=== PATIENT | male | born 1975 | race Two or more races ===

== ENCOUNTER 2020-03-09 19:33 | Emergency (ER) | payer MEDICAID, OTHER ==
[~2020-03-09] VITALS: Ht 177.8 cm; Wt 92.0 kg
[2020-03-09 19:38] VITALS: BP 119/78
--- NOTE | 2020-03-09 20:05 | NUR ---
THIS IS A 44 YO MALE BIB [facility] FROM [facility] FOR POTENTIAL SYNCOPAL EVENT, PER DAIJASA "IT SOUNDED LIKE AN ORTHOSTATIC THING, HE SAID HE HASN'T BEEN EATING OR DRINKING FLUIDS MUCH NORMAL". PATIENT SUSTAINED HEAD LAC WITH FALL, RECALLS EVENT OF FALL. A&OX4 WITH [facility] 15 ON SCENE AND IN ED. BLEEDING CONTROLLED WITH GAUZE. PATIENT UNDER SURVEILLANCE OF SHERRIFFS IN ROOM. ERP IN ROOM FOR EVAL. WHEN ASKED ABOUT ETOH AND DRUG HX, PATIENT KEPT RAMBLING ABOUT "I HAVE A BULGED DISC IN MY NECK". UNABLE TO OBTAIN RELIABLE DRUG AND ALCOHOL HX FROM BEFORE [facility].
[2020-03-09 20:08] LABS: BASOPHILS # (AUTO) 0.04 x10^3/uL (0-0.1); BASOPHILS % (AUTO) 1 % (0-1); EOSINOPHILS # (AUTO) 0.12 x10^3/uL (0-0.4); EOSINOPHILS % (AUTO) 1 % (1-7); LYMPHOCYTES # (AUTO) 2.44 x10^3/uL (1-3.4); LYMPHOCYTES % (AUTO) 28 % (22-44); MD NO; MEAN CORPUSCULAR HEMOGLOBIN 30.9 pg (27.5-34.5); MEAN CORPUSCULAR HGB CONC 32.9 g/dL (33.2-36.2); MEAN PLATELET VOLUME 7.9 fL (7.4-10.4); MONOCYTES # (AUTO) 0.57 x10^3/uL (0.2-0.8); MONOCYTES % (AUTO) 6 % (2-9); NEUTROPHILS # (AUTO) 5.68 x10^3/uL (1.8-6.8); NEUTROPHILS % (AUTO) 64 % (42-75); PLATELET COUNT 315 x10^3/uL (130-400); RED BLOOD COUNT 5.65 x10^6/uL (4.38-5.82); RED CELL DISTRIBUTION WIDTH 12.7 % (9.4-14.8)
--- NOTE | 2020-03-09 20:09 | NUR ---
PATIENT GIVEN URINAL FOR UA
--- NOTE | 2020-03-09 20:19 | NUR ---
BREAK RN: PATIENT TO CT SCAN.
[2020-03-09 20:20] LABS: ALBUMIN 3.5 g/dL (3.4-5.0); ANION GAP 6 mmol/L (5-15); CALCIUM 9.1 mg/dL (8.5-10.1); CHLORIDE 108 mmol/L (98-107)
--- NOTE | 2020-03-09 20:28 | NUR ---
BACK FROM CT SCAN. AWAITING RESULT.
[2020-03-09 20:32] LABS: ALANINE AMINOTRANSFERASE 20 U/L (12-78); ALKALINE PHOSPHATASE 93 U/L (45-117); BILIRUBIN,TOTAL 0.3 mg/dL (0.2-1.0); CREATININE 1.17 mg/dL (0.7-1.3); TOTAL PROTEIN 7.1 g/dL (6.4-8.2)
[2020-03-09 20:53] LABS: FREE T4 (FREE THYROXINE) 0.89 ng/dL (0.76-1.46)
--- NOTE | 2020-03-09 21:16 | NUR ---
PATIENT STATES HE IS ABLE TO URINATE AT THIS TIME, USING URINAL AT BEDSIDE
--- NOTE | 2020-03-09 21:24 | NUR ---
UA COLLECTED AND SENT TO LAB
[2020-03-09 21:43] LABS: AMPHETAMINE SCREEN, URINE Negative (Negative); BARBITURATE SCREEN, URINE Negative (Negative); BENZODIAZEPINE SCREEN, URINE Negative (Negative); CANNABINOID SCREEN, URINE Negative (Negative); COCAINE SCREEN, URINE Negative (Negative); METHADONE SCREEN, URINE Negative (Negative); OPIATE SCREEN, URINE Negative (Negative)
[2020-03-09] MEDS ORDERED: LIDOCAINE-MPF 1%, 5ML ONE (21:51)
[2020-03-09 22:13] LABS: MICROSCOPIC NOT IND
--- NOTE | 2020-03-09 23:19 | NUR ---
Patient and [facility] given discharge instructions and they have confirmed that they understand the instructions. Patient ambulatory with steady gait in room, wheeled to discharged for safety with lawrence
== END 2020-03-09 23:22 | disposition home or self-care (01) ==
LOC: ED 20:03
DX: S01.01XA Laceration without foreign body of scalp, initial encounter (principal); S09.90XA Unspecified injury of head, initial encounter; R55 Syncope and collapse; E83.39 Other disorders of phosphorus metabolism; R42 Dizziness and giddiness; M54.2 Cervicalgia; W18.00XA Striking against unspecified object with subsequent fall, initial encounter; Y93.89 Activity, other specified; Y92.89 Other specified places as the place of occurrence of the external cause; Y99.8 Other external cause status
CPT/HCPCS: 12032; 36415; 70450; 72125; 80053; 80307; 81003; 83735; 84100; 84439; 84443; 85025; 99285